=== PATIENT | female | born 1945 | race Caucasian/White ===

== ENCOUNTER 2017-08-28 03:42 | Emergency (ER) | payer MEDICARE, MEDICAID ==
[~2017-08-28] VITALS: Ht 152.4 cm; Wt 56.7 kg
[2017-08-28 04:08] VITALS: BP 130/85
[2017-08-28] MEDS ORDERED: traMADol HCL 50 MG TAB PO ONE (07:15)
== END 2017-08-28 08:03 | disposition home or self-care (01) ==
LOC: ER 03:42
DX: S22.42XA Multiple fractures of ribs, left side, initial encounter for closed fracture (principal); E11.9 Type 2 diabetes mellitus without complications; W01.0XXA Fall on same level from slipping, tripping and stumbling without subsequent striking against object, initial encounter; Y93.89 Activity, other specified; Y99.8 Other external cause status; Y92.89 Other specified places as the place of occurrence of the external cause
CPT/HCPCS: 71101; 93005